=== PATIENT | male | born 1950 | race Caucasian/White ===

== ENCOUNTER 2019-05-12 09:06 | Day surgery (SDC) | payer BC, OTHER ==
[2019-05-09 13:56] VITALS: BMI 28.8
[2019-05-12] MEDS ORDERED: LIDOCAINE HCL/PF 2% SDV 5ML VIAL ONE (09:30)
[2019-05-12] MEDS ORDERED: PROPOFOL 20 ML ONE ×5 (09:31→10:27)
[2019-05-12 10:33] VITALS: TEMP 98.2
[2019-05-12 11:49] VITALS: BP 122/64; PULSE 74
--- NOTE | 2019-05-16 15:26 | PATH ---
Surgical Pathology Report Patient Name: PILI RODRIGUEZ [facility]. Rec. #: [id number] /Age/Gender: 1950 (Age: 69) / M Account: [id number] [facility] Taken: 05/12/2019 Received: 05/12/2019 Reported: 05/16/2019 Physicians: Mulu Mcgovern M.D. Specimen(s) Received DESCENDING COLON, "LIPOMA" Clinical History Abdominal pain, history of polyps Postoperative diagnosis: Diverticulosis, lipoma, hemorrhoids Final Diagnosis DESCENDING COLON, "LIPOMA", BIOPSY: POLYPOID COLONIC MUCOSA WITH CRUSHED LYMPHOID AGGREGATE. NO SUBMUCOSAL TISSUE IDENTIFIED. Electronically Signed Mulu Briones M.D. Gross Description Received in formalin, labeled "biopsy lipoma descending colon" is a cordoba, irregular portion of soft tissue measuring 0.2 cm. in greatest dimension. The specimen is submitted in toto in one cassette. 05/15/2019 [facility]05/15/2019
== END 2019-05-12 11:30 | disposition home or self-care (01) ==
LOC: FASU-ENDO 09:06
PROVIDERS: ATTEND Internal Medicine Gastroenterology
PROC: 0DBM8ZX Excision of Descending Colon, Via Natural or Artificial Opening Endoscopic, Diagnostic (ICD-10-PCS; principal; 2019-05-12 09:47)
DX: Z86.010 Personal history of colon polyps (principal); D17.79 Benign lipomatous neoplasm of other sites; K64.1 Second degree hemorrhoids; K57.30 Diverticulosis of large intestine without perforation or abscess without bleeding; K63.89 Other specified diseases of intestine
CPT/HCPCS: 88305-TC